=== PATIENT | female | born 1995 | race American Indian/Alaskan Native ===

== ENCOUNTER 2016-05-05 16:14 | Emergency (ER) | payer SELFPAY ==
[2016-05-05 16:55] VITALS: BP 117/71
--- NOTE | 2016-05-05 17:14 | Emergency Department Report ---
HPI - General Chief Complaint: Sore Throat Time Seen by Provider: 05/05/16 17:14 - HPI HPI: Patient here reports sore throat for the last 3 days. She reports headache at night. Denies any nausea vomiting or diarrhea. She reports fever and chills at night. Took [id number] pain medication without any relief. Denies any chest pain or shortness of breath. Denies any drooling. Last menstrual period was 04/17/2016. Reports difficulty swallowing due to sore throat. Denies any wheezing or stridor. Denies any coughing or congestion. ED Past Medical Hx - Past Medical History Previous Medical History?: No - Surgical History Past Surgical History?: No - Family History Family history: no significant - Social History Smoking Status: Never Smoker Substance Use Type: None - Medications Home Medications: Home Medications Medication Instructions Recorded Confirmed Last Taken Type Amoxicillin [Amoxicillin TAB] 875 mg PO BID #20 tablet 05/05/16 Unknown Rx Ibuprofen [Motrin] 600 mg PO Q8H PRN #15 tablet 05/05/16 Unknown Rx ED Review of Systems ROS: Stated complaint: SORE THROAT Other details as noted in HPI Comment: All other systems reviewed and negative Constitutional: chills, fever Eyes: denies: eye pain ENT: throat pain. denies: ear pain, congestion Respiratory: no symptoms reported Cardiovascular: denies: chest pain, palpitations, syncope, paroxysmal nocturnal dyspnea Gastrointestinal: denies: abdominal pain, nausea, vomiting Genitourinary: denies: dysuria Musculoskeletal: denies: back pain Skin: denies: rash Neurological: headache. denies: numbness, paresthesias, confusion, abnormal gait, vertigo Physical Exam - Physical Exam Vital Signs: Vital Signs 05/05/16 16:53 Temperature 98.6 F Pulse Rate 85 Respiratory 16 Rate Blood Pressure 117/71 O2 Sat by Pulse 96 Oximetry General: This is a 20-year-old female well-nourished well-developed in no acute distress. Physical Exam: Head: Normocephalic atraumatic Mouth: Moist, positive pharyngeal exudate and erythema. Uvula is midline and oral airway is patent. No facial swelling. No peritonsillar abscesses. Nose: Normal mucosa . Clear Drainage. Maxillary and frontal sinuses nontender to palpate Neck: Supple, no C-spine tenderness, no tracheal deviation. Nontender to palpate.positive adenopathy Ears: Bilateral TMs pearly ocampo. Bilateral EAC without any redness swelling or drainage. Bilateral otitis nontender to palpate Abdomen: Soft, nontender to palpate in all quadrants, normal bowel sounds in all quadrant and negative CVA tenderness bilaterally.. Eyes: Bilateral pupils equal and reactive to light, bilateral EOM intact. Bilateral sclera and conjunctiva without injection. Normal accommodation. No nystagmus Lungs: Clear to auscultate bilaterally no rhonchi wheezes or rales. Normal work of breathing extremity; No CCE. +2 pulses. No neurovascular compromise Cardiovascular: S1-S2, regular rate rhythm. No murmurs. Skin: clean Dry and intact no rash no lesions Psych: Normal mood and behavior ED Course Vital Signs 05/05/16 16:53 Temperature 98.6 F Pulse Rate 85 Respiratory 16 Rate Blood Pressure 117/71 O2 Sat by Pulse 96 Oximetry - Reevaluation(s) Reevaluation #1: 05/05/16 17:31 had uneventful ED stay. ED Medical Decision Making - Medical Decision Making ED course: I discussed the patient that she has strep throat based on her physical findings with exudate, chills and enlarged lymph nodes. Patient discharged home on amoxicillin and ibuprofen. She chose to take amoxicillin and not Bicillin. She is to follow-up with her primary care physician. She voices understanding of diagnosis and treatment plan. Critical care attestation.: If time is entered above; I have spent that time in minutes in the direct care of this critically ill patient, excluding procedure time. ED Disposition Clinical Impression: Exudative pharyngitis Disposition: DISCHARGED TO HOME OR SELFCARE Is pt being admited?: No Does the pt Need Aspirin: No Condition: Stable Instructions: Pharyngitis (ED) Additional Instructions: please gargle with warm salt water. Take antibiotic as prescribed. Prescriptions: Amoxicillin [Amoxicillin TAB] 875 mg PO BID #20 tablet Ibuprofen [Motrin] 600 mg PO Q8H PRN #15 tablet PRN Reason: Pain Referrals: [facility] [Outside] - 2-3 Days Forms: Work/School Release Form(ED)
[2016-05-05] MEDS ORDERED: MOTRIN PO ONE (17:33)
== END 2016-05-05 17:53 | disposition home or self-care (01) ==
LOC: ED 16:14
DX: J02.9 Acute pharyngitis, unspecified (principal)
CPT/HCPCS: 99282